=== PATIENT | female | born 1930 | race Caucasian/White ===

== ENCOUNTER 2017-06-28 07:58 | Emergency (ER) | payer MEDICARE ==
[~2017-06-28] VITALS: Ht 162.6 cm; Wt 52.3 kg
[2017-06-28] MEDS ORDERED: LEVO150 PO (08:34)
[2017-06-28] MEDS ORDERED: SENN-175 PO (08:34)
[2017-06-28] MEDS ORDERED: CEPH500 PO (08:34)
[2017-06-28] MEDS ORDERED: QUET25TA PO (08:34)
[2017-06-28] MEDS ORDERED: DOCU250C91 PO (08:34)
[2017-06-28] MEDS ORDERED: MENT3.5O TP (08:34)
[2017-06-28] MEDS ORDERED: MELA3TAB66 PO (08:34)
[2017-06-28] MEDS ORDERED: ACET325T47 PO (08:34)
[2017-06-28 11:32] VITALS: BP 161/85
== END 2017-06-28 11:45 | disposition short-term general hospital (02) ==
LOC: EMS 08:02
DX: S32.010A Wedge compression fracture of first lumbar vertebra, initial encounter for closed fracture (principal); R26.2 Difficulty in walking, not elsewhere classified; R03.0 Elevated blood-pressure reading, without diagnosis of hypertension; E03.9 Hypothyroidism, unspecified; W19.XXXA Unspecified fall, initial encounter; Y93.89 Activity, other specified; Y92.89 Other specified places as the place of occurrence of the external cause; Y99.8 Other external cause status
CPT/HCPCS: 70450; 72100; 72125; 72170; 99291